=== PATIENT | male | born 1965 ===

== ENCOUNTER 2016-10-24 14:32 | Emergency (ER) | payer OTHER ==
[2016-10-24 14:50] VITALS: BP 128/94; PULSE 89; RESP 16; TEMP 98; O2SAT 100
--- NOTE | 2016-10-24 15:23 | ED PDOC ---
HPI: CCC, URI, Sore Throat Time Seen by Provider: 10/24/16 15:03 Chief Complaint (Nursing): ENT Problem Chief Complaint (Provider): Red itchy eyes, scratchy throat for 1 week History Per: Patient History/Exam Limitations: no limitations Have you had recent travel within the past 21 days to any of the following countries: [place], [place], [place] or [place]?: No Onset/Duration Of Symptoms: Days (1.5 weeks ) Current Symptoms Are (Timing): Still Present Location Of Pain: None Sick Contacts (Context): None Associated Symptoms: Sore Throat, Nasal Congestion (Watery ). denies: Fever, Chills, Cough, Sputum, Sinus Drainage, Myalgias Ear Symptoms: Bilateral: None Severity: Mild Additional Complaint(s): Pt reports history of seasonal allergies but states he has never had throat pain with it. Pt is not taking any medications for the symptoms. Past Medical History Reviewed: Historical Data, Nursing Documentation, Vital Signs Vital Signs: Last Vital Signs Temp 98.0 F 10/24/16 14:50 Pulse 89 10/24/16 14:50 Resp 16 10/24/16 14:50 BP 128/94 H 10/24/16 14:50 Pulse Ox 100 10/24/16 15:24 - Medical History PMH: No Chronic Diseases - Surgical History Surgical History: No Surg Hx - Family History Family History: States: Unknown Family Hx - Living Arrangements Living Arrangements: With Family - Social History Current smoker - smoking cessation education provided: No Alcohol: None Drugs: Denies - Home Medications Home Medications: Ambulatory Orders Medication Instructions Recorded Amoxicillin 875 mg PO BID #20 tab 10/24/16 Fexofenadine/Pseudoephedrine 1 each PO BID PRN #12 tab.er.12h 10/24/16 [Debra-D 12 Hour Tablet] - Allergies Allergies/Adverse Reactions: Allergies Allergy/AdvReac Type Severity Reaction Status Date / Time No Known Allergies Allergy Verified 10/24/16 14:49 Review of Systems ROS Statement: Except As Marked, All Systems Reviewed And Found Negative Eyes: Positive for: Redness, Other (Watery) ENT: Positive for: Throat Pain Physical Exam - Reviewed Nursing Documentation Reviewed: Yes Vital Signs Reviewed: Yes - Physical Exam Appears: Positive for: Well, Non-toxic, No Acute Distress Head Exam: Positive for: ATRAUMATIC, NORMAL INSPECTION, NORMOCEPHALIC Skin: Positive for: Normal Color, Warm, DRY Eye Exam: Positive for: Conjunctival injection. Negative for: Normal appearance ENT: Positive for: Pharyngeal Erythema. Negative for: Normal ENT Inspection Neck: Positive for: Normal, Painless ROM Cardiovascular/Chest: Positive for: Regular Rate, Rhythm Respiratory: Positive for: Normal Breath Sounds. Negative for: Accessory Muscle Use, Wheezing, Respiratory Distress Back: Positive for: Normal Inspection Extremity: Positive for: Normal ROM Neurologic/Psych: Positive for: Alert, Oriented - ECG O2 Sat by Pulse Oximetry: 100 Medical Decision Making Medical Decision Making: Strep (+) Disposition - Clinical Impression Clinical Impression: Seasonal allergies, Strep throat - Patient ED Disposition Is Patient to be Admitted: No Counseled Patient/Family Regarding: Diagnosis, Need For Followup - Disposition Referrals: [facility] [Outside] Disposition: Routine/Home Disposition Time: 15:49 Condition: GOOD Prescriptions: Amoxicillin 875 mg PO BID #20 tab Fexofenadine/Pseudoephedrine [Debra-D 12 Hour Tablet] 1 each PO BID PRN #12 tab.er.12h PRN Reason: Cough And Congestion Instructions: Strep Throat (ED) Print Language: MACEDONIAN
== END 2016-10-24 16:08 | disposition home or self-care (01) ==
LOC: H.ER 14:32
DX: J30.2 Other seasonal allergic rhinitis (principal); J02.0 Streptococcal pharyngitis

== ENCOUNTER 2017-01-03 10:17 | Emergency (ER) | payer OTHER ==
[2017-01-03 10:40] VITALS: BMI 32.3
[2017-01-03 10:45] VITALS: RESP 18; TEMP 98.2; O2SAT 98
[2017-01-03 11:09] LABS: HEMOGLOBIN 14.4 g/dL (12.0-18.0); MEAN CELL VOLUME 86.3 fl (80.0-94.0); MEAN CORPUSCULAR HEMOGLOBIN 29.5 pg (27.0-31.0); MEAN CORPUSCULAR HGB CONC 34.1 g/dL (33.0-37.0); RBC 4.88 Mil/uL (4.40-5.90); RED CELL DISTRIBUTION WIDTH 14.2 % (11.5-14.5)
[2017-01-03] MEDS ORDERED: Iohexol 240 (50 ml) PO ONE (11:14)
[2017-01-03 11:32] LABS: ALBUMIN 4.4 g/dL (3.5-5.0)
[2017-01-03 11:35] LABS: ALB/GLOB RATIO 1.1 (1.0-2.1); ALT/SGPT 113 U/L (21-72); AST/SGOT 50 U/L (17-59); BLOOD UREA NITROGEN 14 mg/dl (9-20); GFR AFRICAN-AMERICAN > 60; GFR NON-AFRICAN AMERICAN > 60
[2017-01-03 11:36] LABS: CALCIUM 9.2 mg/dL (8.4-10.2)
[2017-01-03] MEDS ORDERED: Iohexol 240 (50 ml) ONE (12:21)
[2017-01-03] MEDS ORDERED: Iohexol 300 100 ML IJ ONE (14:45)
[2017-01-03] MEDS ORDERED: Sodium Chloride 0.9% 50 ML IV ONE (14:45)
--- NOTE | 2017-01-03 15:35 | CT ---
PROCEDURE: CT Abdomen and Pelvis with contrast HISTORY: left sided abdominal pain COMPARISON: None. TECHNIQUE: Contrast dose: 100 mL Omnipaque 300. Axial and reformatted coronal and sagittal CT images of the abdomen and pelvis were obtained after IV and oral contrast administration. Radiation dose: Total exam DLP = 1158.69 mGy-cm. This CT exam was performed using one or more of the following dose reduction techniques: Automated exposure control, adjustment of the mA and/or kV according to patient size, and/or use of iterative reconstruction technique. FINDINGS: LOWER THORAX: Unremarkable. LIVER: The liver is mildly enlarged demonstrates diffuse moderate hypodensity suggestive but nonspecific for hepatic steatosis P GALLBLADDER AND BILE DUCTS: Unremarkable. PANCREAS: Unremarkable. No gross lesion or ductal dilatation. SPLEEN: Unremarkable. ADRENALS: Unremarkable. No mass. KIDNEYS AND URETERS: Unremarkable. No hydronephrosis. No solid mass. VASCULATURE: Unremarkable. No aortic aneurysm. BOWEL: Mildly dilated small bowel loops at the left mid and upper abdomen demonstrate mild wall thickening. Findings suspicious for enteritis. No evidence of bowel obstruction APPENDIX: Normal appendix. PERITONEUM: Unremarkable. No free fluid. No free air. LYMPH NODES: Unremarkable. No enlarged lymph nodes. BLADDER: Unremarkable. REPRODUCTIVE: Unremarkable. BONES: No acute fracture. OTHER FINDINGS: None. IMPRESSION: Mildly dilated small bowel loops at the left mid and upper abdomen demonstrate mild wall thickening. Findings suspicious for enteritis. No evidence of high-grade bowel obstruction. Mild hepatomegaly and [id number] hepatic steatosis.
--- NOTE | 2017-01-03 15:51 | ED PDOC ---
HPI: Abdomen Time Seen by Provider: 01/03/17 10:35 Chief Complaint (Nursing): Abdominal Pain Chief Complaint (Provider): LEft sided abdominal pain on/off for 2 months History Per: Patient History/Exam Limitations: no limitations Onset/Duration Of Symptoms: Days Outside of [place] travel?: No Current Symptoms Are (Timing): Still Present Location Of Pain/Discomfort: LUQ, LLQ Quality Of Discomfort: Sharp, Cramping Associated Symptoms: Diarrhea. denies: Fever, Chills, Nausea, Vomiting, Loss Of Appetite, Back Pain, Chest Pain Exacerbating Factors: None Additional Complaint(s): PT has not yet been seen for symptoms. Past Medical History Reviewed: Historical Data, Nursing Documentation, Vital Signs Vital Signs: Last Vital Signs Temp 98.2 F 01/03/17 10:35 Pulse 81 01/03/17 10:35 Resp 18 01/03/17 10:35 BP 142/82 01/03/17 10:35 Pulse Ox 98 01/03/17 10:35 - Medical History PMH: No Chronic Diseases - Surgical History Surgical History: No Surg Hx - Family History Family History: States: Unknown Family Hx - Living Arrangements Living Arrangements: With Family - Social History Current smoker - smoking cessation education provided: No Alcohol: None Drugs: Denies - Home Medications Home Medications: Ambulatory Orders Medication Instructions Recorded Amoxicillin 875 mg PO BID #20 tab 10/24/16 Fexofenadine/Pseudoephedrine 1 each PO BID PRN #12 tab.er.12h 10/24/16 [Debra-D 12 Hour Tablet] Ciprofloxacin [Cipro] 500 mg PO BID #20 tab 01/03/17 metroNIDAZOLE [Flagyl] 500 mg PO TID #30 tab 01/03/17 - Allergies Allergies/Adverse Reactions: Allergies Allergy/AdvReac Type Severity Reaction Status Date / Time No Known Allergies Allergy Verified 10/24/16 14:49 Review of Systems ROS Statement: Except As Marked, All Systems Reviewed And Found Negative Constitutional: Negative for: Fever, Chills Gastrointestinal: Positive for: Abdominal Pain, Diarrhea. Negative for: Nausea , Vomiting Physical Exam - Reviewed Nursing Documentation Reviewed: Yes Vital Signs Reviewed: Yes - Physical Exam Appears: Positive for: Well, Non-toxic, No Acute Distress Head Exam: Positive for: ATRAUMATIC, NORMAL INSPECTION, NORMOCEPHALIC Skin: Positive for: Normal Color, Warm, DRY Eye Exam: Positive for: Normal appearance ENT: Positive for: Normal ENT Inspection Neck: Positive for: Normal, Painless ROM Cardiovascular/Chest: Positive for: Regular Rate, Rhythm Respiratory: Positive for: CNT, Normal Breath Sounds Gastrointestinal/Abdominal: Positive for: Bowel Sounds, Soft, Tenderness (LLQ, LUQ ). Negative for: Normal Exam Back: Positive for: Normal Inspection Extremity: Positive for: Normal ROM Neurologic/Psych: Positive for: Alert, Oriented - Laboratory Results Result Diagrams: 01/03/17 11:06 01/03/17 11:06 - ECG O2 Sat by Pulse Oximetry: 98 Disposition - Clinical Impression Clinical Impression: Enteritis - Patient ED Disposition Is Patient to be Admitted: No Counseled Patient/Family Regarding: Diagnosis, Need For Followup, Rx Given - Disposition Referrals: Oleksandr Pierre MD, PhD [Staff Provider] - Disposition: Routine/Home Disposition Time: 15:52 Condition: GOOD Prescriptions: Ciprofloxacin [Cipro] 500 mg PO BID #20 tab metroNIDAZOLE [Flagyl] 500 mg PO TID #30 tab Instructions: Enteritis (ED) Print Language: LUXEMBOURGISH
[2017-01-03 16:25] VITALS: BP 130/74; PULSE 88
== END 2017-01-03 16:24 | disposition home or self-care (01) ==
LOC: H.ER 10:17
DX: K52.9 Noninfective gastroenteritis and colitis, unspecified (principal)

== ENCOUNTER 2018-05-30 10:06 | Observation (INO) | payer SELFPAY ==
[2018-05-30 10:07] VITALS: BMI 32.3
--- NOTE | 2018-05-30 11:09 | ED PDOC ---
HPI: Abdomen <Oleksandr Muller III - Last Filed: 05/30/18 13:44> Additional Complaint(s): 53 yo male patient w/o PMH presents to the ED c/o LUQ and LLQ pain, patient reports that pain started 3 days ago, no related with food or any other event. Associated bloody diarrhea x2 and dyspesia. Patient also states had similar event ~ 1 year ago. Otherwise he denies fever, chills, nausea, vomiting, constipation, no urinary sx, recent travels or sick contacts. <Bruce Navas - Last Filed: 05/30/18 13:50> Time Seen by Provider: 05/30/18 10:45 Chief Complaint (Nursing): Abdominal Pain Supervising Attending Note - Attestation: I have personally seen and examined this patient.: Yes I have fully participated in the care of the patient.: Yes I have reviewed all pertinent clinical information: Yes - Notes: Notes:: attending note pt seen/examined and agree with resident findings CT report demonstrated possible acute appendicitis. Clinically pain is L sided with minimal R sided tenderness. Admit Obs for surgical eval. D/w Dr Sloan and vice president of contracts 140pm Hold Abx for now <Oleksandr Muller III - Last Filed: 05/30/18 13:44> Past Medical History Vital Signs: Last Vital Signs Temp 98.2 F 05/30/18 10:31 Pulse 84 05/30/18 10:31 Resp 20 05/30/18 10:31 BP 142/86 05/30/18 10:31 Pulse Ox 96 05/30/18 11:19 <Oleksandr Muller III - Last Filed: 05/30/18 13:44> Vital Signs: Last Vital Signs Temp 98.2 F 05/30/18 10:31 Pulse 84 05/30/18 10:31 Resp 20 05/30/18 10:31 BP 142/86 05/30/18 10:31 Pulse Ox 96 05/30/18 10:31 - Medical History PMH: No Chronic Diseases Denies: Chronic Kidney Disease - Surgical History Other surgeries: b/l Foot surgery - Family History Family History: States: Unknown Family Hx - Social History Current smoker - smoking cessation education provided: No Ex-Smoker (has not smoked in the last 12 months): Yes Alcohol: None Drugs: Denies - Immunization History Hx Tetanus Toxoid Vaccination: Yes Hx Influenza Vaccination: No Hx Pneumococcal Vaccination: No <Bruce Navas - Last Filed: 05/30/18 13:50> - Home Medications Home Medications: Ambulatory Orders Medication Instructions Recorded No Known Home Med 05/30/18 - Allergies Allergies/Adverse Reactions: Allergies Allergy/AdvReac Type Severity Reaction Status Date / Time No Known Allergies Allergy Verified 02/03/18 02:45 Physical Exam - Physical Exam Appears: Positive for: No Acute Distress Head Exam: Positive for: NORMAL INSPECTION Skin: Positive for: Normal Color, Warm, Dry Eye Exam: Positive for: EOMI Cardiovascular/Chest: Positive for: Regular Rate, Rhythm. Negative for: Tachycardia Respiratory: Positive for: Normal Breath Sounds. Negative for: Rales, Wheezing Gastrointestinal/Abdominal: Positive for: Bowel Sounds, Tenderness (LUQ and LLU), Distended (mild) Neurologic/Psych: Positive for: Alert, crew supervisor II-XII, Oriented <Bruce Navas - Last Filed: 05/30/18 13:50> - Laboratory Results Result Diagrams: 05/30/18 11:20 05/30/18 11:20 <Oleksandr Muller III - Last Filed: 05/30/18 13:44> - Laboratory Results Result Diagrams: 05/30/18 11:20 05/30/18 11:20 - ECG O2 Sat by Pulse Oximetry: 96 - Progress ED Course And Treament: 53 yo male patient with LUQ and LLQ pain, bloody diarrhea Plan: - cbc - cmp - lipase - abd/pelvis CT iv contrast - IV fluids - Toradol 15 mg IV once - bentyl PO once 1300 Reeval: Less but still having mild pain General surgery consulted. CT FINDINGS: LOWER THORAX: Small Bochdalek's hernia on the right side with only a small amount of fat herniated. No infiltrate or effusion. LIVER: Unremarkable. No gross lesion or ductal dilatation. GALLBLADDER AND BILE DUCTS: Unremarkable. PANCREAS: Unremarkable. No gross lesion or ductal dilatation. SPLEEN: Unremarkable. ADRENALS: Unremarkable. No mass. KIDNEYS AND URETERS: Unremarkable. No hydronephrosis. No solid mass. VASCULATURE: Unremarkable. No aortic aneurysm. No aortic atherosclerotic calcification or mural plaque present. BOWEL: Mild sigmoid diverticulosis without evidence of diverticulitis. No bowel obst ruction. APPENDIX: There is inflammatory change seen about the mid aspect of the appendix. The mid aspect of the appendix measures up to 8 mm in diameter. It does not appear definitely distended with fluid. The proximal appendix and distal appendix are normal in appearance. There stranding of the periappendiceal fat. There is no periappendiceal abscess or free air. Findings are concerning for acute appendicitis. PERITONEUM: Unremarkable. No free fluid. No free air. LYMPH NODES: Unremarkable. No enlarged lymph nodes. BLADDER: Unremarkable. REPRODUCTIVE: Prostate BONES: No acute fracture. OTHER FINDINGS: None. IMPRESSION: Findings consistent with acute appendicitis. This is atypical in that it involves only the mid aspect of the appendix. Nevertheless, recommend surgical consultation. No other acute abnormality. Minor findings as above. <Burce Navas - Last Filed: 05/30/18 13:50> Disposition <Oleksandr Muller III - Last Filed: 05/30/18 13:44> - Disposition Disposition Time: 13:50 <Bruce Navas - Last Filed: 05/30/18 13:50> - Clinical Impression Clinical Impression: Acute appendicitis - Disposition Condition: STABLE Forms: [employer]plify (Swedish)
[2018-05-30] MEDS ORDERED: Sodium Chloride 0.9% 1,000 ML IV ONE (11:15)
[2018-05-30 11:52] LABS: ALB/GLOB RATIO 1.5 (1.0-2.1); ALBUMIN 4.5 g/dL (3.5-5.0); ALT/SGPT 56 U/L (21-72); AST/SGOT 39 U/L (17-59); BLOOD UREA NITROGEN 13 mg/dl (9-20); CALCIUM 9.2 mg/dL (8.4-10.2); GFR NON-AFRICAN AMERICAN > 60; LIPASE 51 U/L (23-300)
[2018-05-30 12:19] LABS: BASO % 0.3 % (0.0-2.0); EOS # 0.4 K/uL (0.0-0.7); EOS % 3.7 % (0.0-4.0); HEMOGLOBIN 13.1 g/dL (12.0-18.0); LYMPH # 2.8 K/uL (1.0-4.3); LYMPH % 26.4 % (20.0-40.0); MEAN CELL VOLUME 88.5 fl (80.0-94.0); MEAN CORPUSCULAR HEMOGLOBIN 29.4 pg (27.0-31.0); MEAN CORPUSCULAR HGB CONC 33.2 g/dL (33.0-37.0); MEAN PLATELET VOLUME 8.2 fl (7.2-11.7); MONO # 0.7 K/uL (0.0-0.8); NEUT # 6.6 K/uL (1.8-7.0); NEUT % 62.6 % (50.0-75.0); NRBC % 0.1 % (0.0-0.0); RBC 4.44 Mil/uL (4.40-5.90); RED CELL DISTRIBUTION WIDTH 15.2 % (11.5-14.5); WHITE BLOOD COUNT 10.6 K/uL (4.8-10.8)
[2018-05-30] MEDS ORDERED: Sodium Chloride 0.9% 50 ML IV ONE (12:21)
[2018-05-30] MEDS ORDERED: Iohexol 300 100 ML IJ ONE (12:21)
--- NOTE | 2018-05-30 13:23 | CT ---
Date of service: 05/30/2018 PROCEDURE: CT Abdomen and Pelvis with contrast HISTORY: diffuse abdominal pain COMPARISON: 01/03/2017 TECHNIQUE: Contrast dose: 95 cc Omnipaque 300 Radiation dose: Total exam DLP = 971.56 mGy-cm. This CT exam was performed using one or more of the following dose reduction techniques: Automated exposure control, adjustment of the mA and/or kV according to patient size, and/or use of iterative reconstruction technique. FINDINGS: LOWER THORAX: Small Bochdalek's hernia on the right side with only a small amount of fat herniated. No infiltrate or effusion. LIVER: Unremarkable. No gross lesion or ductal dilatation. GALLBLADDER AND BILE DUCTS: Unremarkable. PANCREAS: Unremarkable. No gross lesion or ductal dilatation. SPLEEN: Unremarkable. ADRENALS: Unremarkable. No mass. KIDNEYS AND URETERS: Unremarkable. No hydronephrosis. No solid mass. VASCULATURE: Unremarkable. No aortic aneurysm. No aortic atherosclerotic calcification or mural plaque present. BOWEL: Mild sigmoid diverticulosis without evidence of diverticulitis. No bowel obstruction. APPENDIX: There is inflammatory change seen about the mid aspect of the appendix. The mid aspect of the appendix measures up to 8 mm in diameter. It does not appear definitely distended with fluid. The proximal appendix and distal appendix are normal in appearance. There stranding of the periappendiceal fat. There is no periappendiceal abscess or free air. Findings are concerning for acute appendicitis. PERITONEUM: Unremarkable. No free fluid. No free air. LYMPH NODES: Unremarkable. No enlarged lymph nodes. BLADDER: Unremarkable. REPRODUCTIVE: Prostate BONES: No acute fracture. OTHER FINDINGS: None. IMPRESSION: Findings consistent with acute appendicitis. This is atypical in that it involves only the mid aspect of the appendix. Nevertheless, recommend surgical consultation. No other acute abnormality. Minor findings as above.
--- NOTE | 2018-05-30 15:09 | CP.PCM.CON ---
<Milton Ragsdale - Last Filed: 05/30/18 15:12> History of Present Illness - History of Present Illness History of Present Illness: SURGERY CONSULT NOTE FOR DR. TIPTON Reason for consult: Appendicitis as seen on CT 53M presents with abdominal pain that started earlier today. He states that pain comes and goes. The pain is located in the left flank. He denies any radiation of pain. He denies any pain on the right side of abdomen. He states the pain is note associated with nausea or vomiting. He denies any fevers or chills. Patient denies anorexia. He does admit to having bleeding with bowel movements in the past. He was supposed to have a colonoscopy 2 months ago but was in the hospital for foot fracture and was not able to go. Patient denies any urinary symptoms. PMH: denies PSH: denies Social: Denies tobacco, alcohol, illicit drug abuse Allergies: NKDA Past Patient History - Infectious Disease Hx of Infectious Diseases: None - Past Medical History & Family History Past Medical History?: Yes - Past Social History Alcohol: None Drugs: Denies - CARDIAC Hx Cardiac Disorders: No - PULMONARY Hx Respiratory Disorders: No - NEUROLOGICAL Hx Neurological Disorder: No - HEENT Hx HEENT Problems: No - RENAL Hx Chronic Kidney Disease: No - ENDOCRINE/METABOLIC Hx Endocrine Disorders: No - HEMATOLOGICAL/ONCOLOGICAL Hx Blood Disorders: No - INTEGUMENTARY Hx Dermatological Problems: Yes Other/Comment: "PT. 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 - MUSCULOSKELETAL/RHEUMATOLOGICAL Hx Musculoskeletal Disorders: Yes Hx Falls: No Other/Comment: HX: "RIGHT ANKLE REPAIR"- PER MD'S NOTES. OSTEOMYELITIS 1ST MTP JOINT. - GASTROINTESTINAL Hx Gastrointestinal Disorders: No - GENITOURINARY/GYNECOLOGICAL Hx Genitourinary Disorders: No - PSYCHIATRIC Hx Psychophysiologic Disorder: No Hx Substance Use: No - SURGICAL HISTORY Hx Surgeries: Yes Other/Comment: RIGHT ANKLE REPAIR - ANESTHESIA Hx Anesthesia: Yes Hx Anesthesia Reactions: No Hx Malignant Hyperthermia: No Meds Allergies/Adverse Reactions: Allergies Allergy/AdvReac Type Severity Reaction Status Date / Time No Known Allergies Allergy Verified 02/03/18 02:45 - Medications Medications: Current Medications Sodium Chloride (Sodium Chloride 0.9%) 1,000 mls @ 100 mls/hr IV .Q10H ONE Stop: 05/30/18 21:14 Last Admin: 05/30/18 11:28 Dose: 100 mls/hr Physical Exam - Constitutional Appears: Non-toxic, No Acute Distress - Head Exam Head Exam: ATRAUMATIC - ENT Exam ENT Exam: Mucous Membranes Moist - Respiratory Exam Respiratory Exam: Clear to Auscultation Bilateral, NORMAL BREATHING PATTERN - GI/Abdominal Exam GI & Abdominal Exam: Soft, Tenderness (very mild pain in the left flank). absent: Distended, Firm, Guarding, Rebound, Rigid - Extremities Exam Extremities exam: Negative for: pedal edema, tenderness - Neurological Exam Neurological exam: Alert, Oriented x3 - Skin Skin Exam: Dry, Intact, Normal Color, Warm Results - Vital Signs Recent Vital Signs: Last Vital Signs Temp 98.2 F 05/30/18 10:31 Pulse 84 05/30/18 10:31 Resp 20 05/30/18 10:31 BP 142/86 05/30/18 10:31 Pulse Ox 96 05/30/18 13:50 - Labs Result Diagrams: 05/30/18 11:20 05/30/18 11:20 Labs: Laboratory Results - last 24 hr 05/30/18 05/30/18 11:20 11:20 WBC 10.6 RBC 4.44 Hgb 13.1 Hct 39.3 MCV 88.5 D MCH 29.4 MCHC 33.2 RDW 15.2 H Plt Count 284 MPV 8.2 Neut % (Auto) 62.6 Lymph % (Auto) 26.4 [place] % (Auto) 7.0 Eos % (Auto) 3.7 Baso % (Auto) 0.3 Neut # (Auto) 6.6 Lymph # (Auto) 2.8 [place] # (Auto) 0.7 Eos # (Auto) 0.4 Baso # (Auto) 0.0 Sodium 142 Potassium 3.8 Chloride 109 H Carbon Dioxide 25 Anion Gap 12 BUN 13 Creatinine 0.9 Est GFR ( Amer) > 60 Est GFR (Non-Af Amer) > 60 Random Glucose 97 Calcium 9.2 Total Bilirubin 0.4 AST 39 ALT 56 Alkaline Phosphatase 101 Total Protein 7.6 Albumin 4.5 Globulin 3.1 Albumin/Globulin Ratio 1.5 Lipase 51 Assessment & Plan - Assessment and Plan (Free Text) Assessment: 53M with left sided abdominal pain and CT finding of mid appendix inflammation but normal proximal and distal appendix Plan: Regular diet NPO after midnight IVF Pain control Patient admitted for observation Recommend GI consultation for colonoscopy Serial abdominal exam Discussed with Dr. Stuart Ragsdale, PGY3 <Evelyn Tipton - Last Filed: 05/31/18 13:10> Meds - Medications Medications: Current Medications Acetaminophen (Tylenol 325mg Tab) 650 mg PO Q4 PRN PRN Reason: Pain, severe (8-10) Lactated Ringer's (Lactated Ringer's) 1,000 mls @ 125 mls/hr IV .Q8H HO Last Admin: 05/31/18 09:16 Dose: Not Given Azithromycin 500 mg/ Sodium (Chloride) 250 mls @ 250 mls/hr IVPB DAILY [facility]; Protocol Last Admin: 05/31/18 09:28 Dose: 250 mls/hr Piperacillin Sod/Tazobactam (Sod 3.375 gm/ Sodium Chloride) 100 mls @ 100 mls/hr IVPB Q6H HO; Protocol Last Admin: 05/31/18 09:28 Dose: 100 mls/hr Morphine Sulfate (Morphine) 4 mg IVP Q6 PRN PRN Reason: Pain, moderate (4-7) Last Admin: 05/31/18 00:32 Dose: 4 mg Ondansetron HCl (Zofran Inj) 4 mg IVP Q6 PRN PRN Reason: Nausea/Vomiting Last Admin: 05/31/18 00:16 Dose: 4 mg Results - Vital Signs Recent Vital Signs: Last Vital Signs Temp 97.9 F 05/31/18 08:12 Pulse 71 05/31/18 08:12 Resp 19 05/31/18 08:12 BP 142/95 H 05/31/18 08:12 Pulse Ox 96 05/31/18 08:12 - Labs Result Diagrams: 05/31/18 06:00 05/31/18 06:00 Labs: Laboratory Results - last 24 hr 05/31/18 05/31/18 05/31/18 01:00 06:00 06:00 WBC 10.6 RBC 4.30 L Hgb 12.4 Hct 36.9 MCV 85.9 D MCH 28.8 MCHC 33.5 RDW 15.2 H Plt Count 254 MPV 8.0 Neut % (Auto) 67.9 Lymph % (Auto) 20.7 [place] % (Auto) 7.1 Eos % (Auto) 3.9 Baso % (Auto) 0.4 Neut # (Auto) 7.2 H Lymph # (Auto) 2.2 [place] # (Auto) 0.8 Eos # (Auto) 0.4 Baso # (Auto) 0.0 PT INR APTT Sodium 141 Potassium 4.1 Chloride 108 H Carbon Dioxide 27 Anion Gap 10 BUN 12 Creatinine 0.9 Est GFR ( Amer) > 60 Est GFR (Non-Af Amer) > 60 Random Glucose 91 Calcium 9.0 Urine Color Straw Urine Clarity Clear Urine pH 6.0 Ur Specific [place] 1.017 Urine Protein Negative Urine Glucose (UA) Neg Urine Ketones Negative Urine Blood Negative Urine Nitrate Negative Urine Bilirubin Negative Urine Urobilinogen 0.2-1.0 Ur Leukocyte Esterase Neg Urine RBC (Auto) 1 Urine Microscopic WBC < 1 Urine Bacteria Rare 05/31/18 06:00 WBC RBC Hgb Hct MCV MCH MCHC RDW Plt Count MPV Neut % (Auto) Lymph % (Auto) [place] % (Auto) Eos % (Auto) Baso % (Auto) Neut # (Auto) Lymph # (Auto) [place] # (Auto) Eos # (Auto) Baso # (Auto) PT 12.2 INR 1.1 APTT 34.1 Sodium Potassium Chloride Carbon Dioxide Anion Gap BUN Creatinine Est GFR ( Amer) Est GFR (Non-Af Amer) Random Glucose Calcium Urine Color Urine Clarity Urine pH Ur Specific [place] Urine Protein Urine Glucose (UA) Urine Ketones Urine Blood Urine Nitrate Urine Bilirubin Urine Urobilinogen Ur Leukocyte Esterase Urine RBC (Auto) Urine Microscopic WBC Urine Bacteria Assessment & Plan - Assessment and Plan (Free Text) Plan: Seen and examined independent of resident staff and CT imaging and report personally reviewed. Agree with above. mild acute appendicitis. Diverticular disease left colon may explain left sided abdominal pain. OR for laparoscopic appendectomy in am.
[2018-05-30] MEDS ORDERED: Morphine 4 MG/ML VIAL IVP PRN (15:20)
[2018-05-30] MEDS ORDERED: Potassium Ch 20mEq in D5-1/2NS 1,000 ML IV SCH (15:45)
--- NOTE | 2018-05-30 16:16 | CP.PCM.HP ---
<Todd Farmer - Last Filed: 05/30/18 16:33> History of Present Illness - History of Present Illness History of Present Illness: 53 yo M with pmhx of gastroenteritis and osteomyelitis of L 1st MTP presents to the ED with L sided abdominal pain. He reports generalized L sided pain for approximately 7 years. However, for the past day, he reports increase in pain. Pain is sharp, intermittent, aggravated with movement, mildly alleviated with tylenol. He reports nausea and vomiting x1 this morning. Denies recent abdominal trauma. He reports bloody diarrhea, colored blue. Not bright red or maroon. Normal PO intake. Denies fever, chills, recent travel or sick contacts PMD: [facility] Famhx: none Surg: I&d of L 1st MTP. Soc: Denies alcohol, smoking, illicit drugs rx: tylenol NKDA Present on Admission - Present on Admission Any Indicators Present on Admission: No History of DVT/PE: No History of Uncontrolled Diabetes: No Urinary Catheter: No Review of Systems - Constitutional Constitutional: absent: Chills, Fever - Cardiovascular Cardiovascular: absent: Chest Pain - Respiratory Respiratory: absent: Dyspnea - Gastrointestinal Gastrointestinal: Abdominal Pain, Diarrhea (Reports blue feces), Nausea, Vomiting - Genitourinary Genitourinary: absent: Difficulty Urinating Past Patient History - Infectious Disease Hx of Infectious Diseases: None - Past Medical History & Family History Past Medical History?: Yes - Past Social History Alcohol: None Drugs: Denies - CARDIAC Hx Cardiac Disorders: No - PULMONARY Hx Respiratory Disorders: No - NEUROLOGICAL Hx Neurological Disorder: No - HEENT Hx HEENT Problems: No - RENAL Hx Chronic Kidney Disease: No - ENDOCRINE/METABOLIC Hx Endocrine Disorders: No - HEMATOLOGICAL/ONCOLOGICAL Hx Blood Disorders: No - INTEGUMENTARY Hx Dermatological Problems: Yes - MUSCULOSKELETAL/RHEUMATOLOGICAL Hx Musculoskeletal Disorders: Yes - GASTROINTESTINAL Hx Gastrointestinal Disorders: No - GENITOURINARY/GYNECOLOGICAL Hx Genitourinary Disorders: No - PSYCHIATRIC Hx Psychophysiologic Disorder: No - SURGICAL HISTORY Hx Surgeries: Yes Other/Comment: RIGHT ANKLE REPAIR - ANESTHESIA Hx Anesthesia: Yes Hx Anesthesia Reactions: No Hx Malignant Hyperthermia: No Meds Allergies/Adverse Reactions: Allergies Allergy/AdvReac Type Severity Reaction Status Date / Time No Known Allergies Allergy Verified 02/03/18 02:45 Physical Exam - Constitutional Appears: Well, Non-toxic - Eye Exam Eye Exam: EOMI - ENT Exam ENT Exam: Mucous Membranes Moist - Respiratory Exam Respiratory Exam: Clear to Auscultation Bilateral, NORMAL BREATHING PATTERN. absent: Wheezes - Cardiovascular Exam Cardiovascular Exam: REGULAR RHYTHM, +S1, +S2 - GI/Abdominal Exam GI & Abdominal Exam: Normal Bowel Sounds, Tenderness (deep palpation and percussion at L upper and lower quadrant). absent: Guarding - Back Exam Back exam: absent: CVA tenderness (L), CVA tenderness (R) - Neurological Exam Neurological exam: Alert, CN II-XII Intact, Oriented x3 - Psychiatric Exam Psychiatric exam: Normal Affect, Normal Mood Results - Vital Signs Recent Vital Signs: Last Vital Signs Temp 98.2 F 05/30/18 15:52 Pulse 84 05/30/18 15:52 Resp 20 05/30/18 15:52 BP 142/86 05/30/18 15:52 Pulse Ox 99 05/30/18 15:52 - Labs Result Diagrams: 05/30/18 11:20 05/30/18 11:20 Labs: Laboratory Results - last 24 hr 05/30/18 05/30/18 11:20 11:20 WBC 10.6 RBC 4.44 Hgb 13.1 Hct 39.3 MCV 88.5 D MCH 29.4 MCHC 33.2 RDW 15.2 H Plt Count 284 MPV 8.2 Neut % (Auto) 62.6 Lymph % (Auto) 26.4 [place] % (Auto) 7.0 Eos % (Auto) 3.7 Baso % (Auto) 0.3 Neut # (Auto) 6.6 Lymph # (Auto) 2.8 [place] # (Auto) 0.7 Eos # (Auto) 0.4 Baso # (Auto) 0.0 Sodium 142 Potassium 3.8 Chloride 109 H Carbon Dioxide 25 Anion Gap 12 BUN 13 Creatinine 0.9 Est GFR ( Amer) > 60 Est GFR (Non-Af Amer) > 60 Random Glucose 97 Calcium 9.2 Total Bilirubin 0.4 AST 39 ALT 56 Alkaline Phosphatase 101 Total Protein 7.6 Albumin 4.5 Globulin 3.1 Albumin/Globulin Ratio 1.5 Lipase 51 Assessment & Plan - Assessment and Plan (Free Text) Assessment: 53 yo M with pmhx of gastroenteritis and osteomyelitis of L 1st MTP admitted for acute appendicitis. Plan: Acute appendicitis -Admit to med surg -CT abdomen and pelvis with IV contrast: acute appendicitis. atypical -Surgery consulted: NPO at midnight, IVF, consider GI consult for colonoscopy -Zosyn -1 mx -monitor wbc, fever -f/u labs Diarrhea -Unclear of blood per rectum -hx of blood described as blue in color -No current bloody stools -History of enteritis -Consult GI: Dr. Pierre for possible colonoscopy Prophylaxis -SCDs Case dw Dr. Luther Farmer MD PGY2 <Celeste Sloan - Last Filed: 05/31/18 18:35> Results - Vital Signs Recent Vital Signs: Last Vital Signs Temp 97.6 F 05/31/18 16:19 Pulse 67 05/31/18 16:19 Resp 18 05/31/18 16:19 BP 109/70 05/31/18 16:19 Pulse Ox 94 L 05/31/18 16:19 - Labs Result Diagrams: 05/31/18 06:00 05/31/18 06:00 Labs: Laboratory Results - last 24 hr 05/31/18 05/31/18 05/31/18 01:00 06:00 06:00 WBC 10.6 RBC 4.30 L Hgb 12.4 Hct 36.9 MCV 85.9 D MCH 28.8 MCHC 33.5 RDW 15.2 H Plt Count 254 MPV 8.0 Neut % (Auto) 67.9 Lymph % (Auto) 20.7 [place] % (Auto) 7.1 Eos % (Auto) 3.9 Baso % (Auto) 0.4 Neut # (Auto) 7.2 H Lymph # (Auto) 2.2 [place] # (Auto) 0.8 Eos # (Auto) 0.4 Baso # (Auto) 0.0 PT INR APTT Sodium 141 Potassium 4.1 Chloride 108 H Carbon Dioxide 27 Anion Gap 10 BUN 12 Creatinine 0.9 Est GFR ( Amer) > 60 Est GFR (Non-Af Amer) > 60 Random Glucose 91 Calcium 9.0 Urine Color Straw Urine Clarity Clear Urine pH 6.0 Ur Specific [place] 1.017 Urine Protein Negative Urine Glucose (UA) Neg Urine Ketones Negative Urine Blood Negative Urine Nitrate Negative Urine Bilirubin Negative Urine Urobilinogen 0.2-1.0 Ur Leukocyte Esterase Neg Urine RBC (Auto) 1 Urine Microscopic WBC < 1 Urine Bacteria Rare 05/31/18 06:00 WBC RBC Hgb Hct MCV MCH MCHC RDW Plt Count MPV Neut % (Auto) Lymph % (Auto) [place] % (Auto) Eos % (Auto) Baso % (Auto) Neut # (Auto) Lymph # (Auto) [place] # (Auto) Eos # (Auto) Baso # (Auto) PT 12.2 INR 1.1 APTT 34.1 Sodium Potassium Chloride Carbon Dioxide Anion Gap BUN Creatinine Est GFR ( Amer) Est GFR (Non-Af Amer) Random Glucose Calcium Urine Color Urine Clarity Urine pH Ur Specific [place] Urine Protein Urine Glucose (UA) Urine Ketones Urine Blood Urine Nitrate Urine Bilirubin Urine Urobilinogen Ur Leukocyte Esterase Urine RBC (Auto) Urine Microscopic WBC Urine Bacteria Attending/Attestation - Attestation I have personally seen and examined this patient.: Yes I have fully participated in the care of the patient.: Yes I have reviewed all pertinent clinical information: Yes Notes (Text): 05/31/18 18:35 agree with findings and plan as above.
[2018-05-30] MEDS: Piperacillin/Tazobact 3.375 GM in Sodium Chloride 0.9% 100 ML IVPB SCH (18:32)
[2018-05-30] MEDS ORDERED: Piperacillin/Tazobact 3.375 GM in Sodium Chloride 0.9% 100 ML IVPB SCH (21:00)
[2018-05-31] MEDS: Piperacillin/Tazobact 3.375 GM in Sodium Chloride 0.9% 100 ML IVPB SCH ×3 (00:16→15:00)
[2018-05-31] MEDS: Lactated Ringer's 1,000 ML IV SCH ×2 (00:16→09:16)
[2018-05-31] MEDS ORDERED: Morphine 4 MG/ML VIAL IVP PRN (00:23)
[2018-05-31 01:13] LABS: URINE BACTERIA RARE (<OCC); URINE BILIRUBIN NEGATIVE (NEGATIVE); URINE BLOOD NEGATIVE (NEGATIVE); URINE CLARITY CLEAR (Clear); URINE COLOR STRAW (YELLOW); URINE GLUCOSE (UA) NEG (Normal); URINE LEUKOCYTE ESTERASE NEG Leu/uL (Negative); URINE PROTEIN NEGATIVE (NEGATIVE); URINE UROBILINOGEN 0.2-1.0 mg/dL (0.2-1.0)
[2018-05-31 06:22] LABS: BASO % 0.4 % (0.0-2.0); EOS # 0.4 K/uL (0.0-0.7); EOS % 3.9 % (0.0-4.0); HEMOGLOBIN 12.4 g/dL (12.0-18.0); LYMPH # 2.2 K/uL (1.0-4.3); LYMPH % 20.7 % (20.0-40.0); MEAN CELL VOLUME 85.9 fl (80.0-94.0); MEAN CORPUSCULAR HEMOGLOBIN 28.8 pg (27.0-31.0); MEAN CORPUSCULAR HGB CONC 33.5 g/dL (33.0-37.0); MONO # 0.8 K/uL (0.0-0.8); MONO % 7.1 % (0.0-10.0); NEUT # 7.2 K/uL (1.8-7.0); NEUT % 67.9 % (50.0-75.0); RBC 4.3 Mil/uL (4.40-5.90); RED CELL DISTRIBUTION WIDTH 15.2 % (11.5-14.5); WHITE BLOOD COUNT 10.6 K/uL (4.8-10.8)
[2018-05-31 06:29] LABS: INR 1.1; PROTHROMBIN TIME 12.2 Seconds (9.8-13.1)
[2018-05-31 06:32] LABS: PARTIAL THROMBOPLASTIN TIME 34.1 Seconds (25.6-37.1)
--- NOTE | 2018-05-31 06:40 | CP.PCM.PN ---
<Todd Farmer - Last Filed: 05/31/18 13:02> Subjective - Date & Time of Evaluation Date of Evaluation: 05/31/18 Time of Evaluation: 06:40 - Subjective Subjective: Pt seen and examined at bedside with surgical team. Pt reports nausea and increasing RLQ with L abdominal pain. Denies bleeding per rectum. Denies vomiting. Objective - Vital Signs/Intake and Output Vital Signs (last 24 hours): Temp Pulse Resp BP Pulse Ox 98 F 68 19 118/78 99 05/31/18 00:30 05/31/18 00:30 05/31/18 00:30 05/31/18 00:30 05/31/18 00:30 - Medications Medications: Current Medications Acetaminophen (Tylenol 325mg Tab) 650 mg PO Q4 PRN PRN Reason: Pain, severe (8-10) Piperacillin Sod/Tazobactam (Sod 3.375 gm/ Sodium Chloride) 100 mls @ 100 mls/hr IVPB Q8 HO; Protocol Last Admin: 05/31/18 00:16 Dose: 100 mls/hr Lactated Ringer's (Lactated Ringer's) 1,000 mls @ 125 mls/hr IV .Q8H HO Last Admin: 05/31/18 00:16 Dose: 125 mls/hr Morphine Sulfate (Morphine) 4 mg IVP Q6 PRN PRN Reason: Pain, moderate (4-7) Last Admin: 05/31/18 00:32 Dose: 4 mg Ondansetron HCl (Zofran Inj) 4 mg IVP Q6 PRN PRN Reason: Nausea/Vomiting Last Admin: 05/31/18 00:16 Dose: 4 mg - Labs Labs: 05/31/18 06:00 05/30/18 11:20 PT 12.2 Seconds (9.8-13.1) 05/31/18 06:00 INR 1.1 05/31/18 06:00 APTT 34.1 Seconds (25.6-37.1) 05/31/18 06:00 - Constitutional Appears: Well, Non-toxic - Eye Exam Eye Exam: EOMI - ENT Exam ENT Exam: Mucous Membranes Moist - Respiratory Exam Respiratory Exam: Clear to Ausculation Bilateral, NORMAL BREATHING PATTERN. absent: Wheezes - Cardiovascular Exam Cardiovascular Exam: REGULAR RHYTHM, +S1, +S2 - GI/Abdominal Exam GI & Abdominal Exam: Soft, Tenderness (L sided and RLQ), Normal Bowel Sounds - Extremities Exam Extremities Exam: absent: Calf Tenderness - Neurological Exam Neurological Exam: Alert, Awake, CN II-XII Intact, Oriented x3 - Psychiatric Exam Psychiatric exam: Normal Affect, Normal Mood Assessment and Plan - Assessment and Plan (Free Text) Assessment: 53 yo M with pmhx of gastroenteritis and osteomyelitis of L 1st MTP admitted for acute appendicitis. Plan: -Pt medically optimized for surgery Acute appendicitis -CT abdomen and pelvis with IV contrast: acute appendicitis -Surgery consulted: Plan for surgery today -Zosyn -1 mx: LR -monitor wbc, fever -f/u labs Diarrhea -Unclear of blood per rectum -hx of blood described as blue in color -No current bloody stools -History of enteritis -Consult GI: Dr. Pierre for possible colonoscopy Prophylaxis -SCDs PT -pt uses cane at home Case dw Dr. Luther Farmer MD PGY2 <Celeste Sloan - Last Filed: 05/31/18 18:32> Objective - Vital Signs/Intake and Output Vital Signs (last 24 hours): Temp Pulse Resp BP Pulse Ox 97.6 F 67 18 109/70 94 L 05/31/18 16:19 05/31/18 16:19 05/31/18 16:19 05/31/18 16:19 05/31/18 16:19 Intake and Output: 05/31/18 05/31/18 06:59 18:59 Intake Total 1300 Balance 1300 - Medications Medications: Current Medications Acetaminophen (Tylenol 325mg Tab) 650 mg PO Q4 PRN PRN Reason: Pain, severe (8-10) Lactated Ringer's (Lactated Ringer's) 1,000 mls @ 125 mls/hr IV .Q8H HO Last Admin: 05/31/18 09:16 Dose: Not Given Azithromycin 500 mg/ Sodium (Chloride) 250 mls @ 250 mls/hr IVPB DAILY HO; Protocol Last Admin: 05/31/18 09:28 Dose: 250 mls/hr Piperacillin Sod/Tazobactam (Sod 3.375 gm/ Sodium Chloride) 100 mls @ 100 mls/hr IVPB Q6H HO; Protocol Last Admin: 05/31/18 15:00 Dose: 100 mls/hr Lactated Ringer's (Lactated Ringer's) 1,000 mls @ 75 mls/hr IV .[id number] HO Last Admin: 05/31/18 14:30 Dose: 0 mls Morphine Sulfate (Morphine) 4 mg IVP Q6 PRN PRN Reason: Pain, moderate (4-7) Last Admin: 05/31/18 00:32 Dose: 4 mg Ondansetron HCl (Zofran Inj) 4 mg IVP Q6 PRN PRN Reason: Nausea/Vomiting Last Admin: 05/31/18 00:16 Dose: 4 mg - Labs Labs: 05/31/18 06:00 05/31/18 06:00 PT 12.2 Seconds (9.8-13.1) 05/31/18 06:00 INR 1.1 05/31/18 06:00 APTT 34.1 Seconds (25.6-37.1) 05/31/18 06:00 Attending/Attestation - Attestation I have personally seen and examined this patient.: Yes I have fully participated in the care of the patient.: Yes I have reviewed all pertinent clinical information, including history, physical exam and plan: Yes Notes (Text): 05/31/18 18:32 agree with findings and plan as above.
[2018-05-31 06:48] LABS: BLOOD UREA NITROGEN 12 mg/dl (9-20); GFR NON-AFRICAN AMERICAN > 60
[2018-05-31] MEDS ORDERED: Piperacillin/Tazobact 3.375 GM in Sodium Chloride 0.9% 100 ML IVPB SCH (07:45)
[2018-05-31] MEDS: Azithromycin 500 MG in Sodium Chloride 0.9% 250 ML IVPB SCH ×2 (09:14→09:28)
[2018-05-31] MEDS ORDERED: Lidocaine 1% Inj (20ml) ONE (10:47)
[2018-05-31] MEDS ORDERED: Bupivacaine HCl 0.5% PF (30 ml) Inj ONE (10:48)
--- NOTE | 2018-05-31 11:03 | CP.PCM.PN ---
<Milton Ragsdale - Last Filed: 05/31/18 11:01> Subjective - Date & Time of Evaluation Date of Evaluation: 05/31/18 Time of Evaluation: 11:01 - Subjective Subjective: SURGERY NOTE FOR DR. TIPTON 53M seen and examined at bedside. Patient states he continues to have left sided abdominal pain and now also developing right lower quadrant pain. He denies any nausea or vomiting, fevers or chills. States pain is not improving. He admits to having clots per rectum with the latest one being from 4 days ago. He has a history of clots. Objective - Vital Signs/Intake and Output Vital Signs (last 24 hours): Temp Pulse Resp BP Pulse Ox 97.9 F 71 19 142/95 H 96 05/31/18 08:12 05/31/18 08:12 05/31/18 08:12 05/31/18 08:12 05/31/18 08:12 - Medications Medications: Current Medications Acetaminophen (Tylenol 325mg Tab) 650 mg PO Q4 PRN PRN Reason: Pain, severe (8-10) Lactated Ringer's (Lactated Ringer's) 1,000 mls @ 125 mls/hr IV .Q8H HO Last Admin: 05/31/18 09:16 Dose: Not Given Azithromycin 500 mg/ Sodium (Chloride) 250 mls @ 250 mls/hr IVPB DAILY [facility]; Protocol Last Admin: 05/31/18 09:28 Dose: 250 mls/hr Piperacillin Sod/Tazobactam (Sod 3.375 gm/ Sodium Chloride) 100 mls @ 100 mls /hr IVPB Q6H HO; Protocol Last Admin: 05/31/18 09:28 Dose: 100 mls/hr Morphine Sulfate (Morphine) 4 mg IVP Q6 PRN PRN Reason: Pain, moderate (4-7) Last Admin: 05/31/18 00:32 Dose: 4 mg Ondansetron HCl (Zofran Inj) 4 mg IVP Q6 PRN PRN Reason: Nausea/Vomiting Last Admin: 05/31/18 00:16 Dose: 4 mg - Labs Labs: 05/31/18 06:00 05/31/18 06:00 PT 12.2 Seconds (9.8-13.1) 05/31/18 06:00 INR 1.1 05/31/18 06:00 APTT 34.1 Seconds (25.6-37.1) 05/31/18 06:00 - Constitutional Appears: Non-toxic, No Acute Distress - Cardiovascular Exam Cardiovascular Exam: REGULAR RHYTHM, +S1, +S2 - GI/Abdominal Exam GI & Abdominal Exam: Soft, Tenderness (left sided and right lower quadrant abdominal tenderness on palpation). 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 Risk and benefits explained to patient. Discussed with Dr Stuart Ragsdale, PGY3 <Evelyn Tipton - Last Filed: 05/31/18 13:09> Objective - Vital Signs/Intake and Output Vital Signs (last 24 hours): Temp Pulse Resp BP Pulse Ox 97.9 F 71 19 142/95 H 96 05/31/18 08:12 05/31/18 08:12 05/31/18 08:12 05/31/18 08:12 05/31/18 08:12 Intake and Output: 05/31/18 05/31/18 06:59 18:59 Intake Total 1100 Balance 1100 - Medications Medications: Current Medications Acetaminophen (Tylenol 325mg Tab) 650 mg PO Q4 PRN PRN Reason: Pain, severe (8-10) Lactated Ringer's (Lactated Ringer's) 1,000 mls @ 125 mls/hr IV .Q8H [facility] Last Admin: 05/31/18 09:16 Dose: Not Given Azithromycin 500 mg/ Sodium (Chloride) 250 mls @ 250 mls/hr IVPB DAILY [facility]; Protocol Last Admin: 05/31/18 09:28 Dose: 250 mls/hr Piperacillin Sod/Tazobactam (Sod 3.375 gm/ Sodium Chloride) 100 mls @ 100 mls/hr IVPB Q6H HO; Protocol Last Admin: 05/31/18 09:28 Dose: 100 mls/hr Morphine Sulfate (Morphine) 4 mg IVP Q6 PRN PRN Reason: Pain, moderate (4-7) Last Admin: 05/31/18 00:32 Dose: 4 mg Ondansetron HCl (Zofran Inj) 4 mg IVP Q6 PRN PRN Reason: Nausea/Vomiting Last Admin: 05/31/18 00:16 Dose: 4 mg - Labs Labs: 05/31/18 06:00 05/31/18 06:00 PT 12.2 Seconds (9.8-13.1) 05/31/18 06:00 INR 1.1 05/31/18 06:00 APTT 34.1 Seconds (25.6-37.1) 05/31/18 06:00 Assessment and Plan - Assessment and Plan (Free Text) Plan: Or for lap appendectomy. Risks and benefits of surgery discussed and informed consent signed. Patient also informed that appendectomy would relieve the right sided abdominal pain and possibly left sided but left sided pain made be to due diverticular disease or other process. Informed he will need colonoscopy as outpatient following discharge. He understands and wishes to proceed.
[2018-05-31] MEDS ORDERED: Lactated Ringer's 1,000 ML IV ONE ×2 (11:35→12:57)
[2018-05-31] MEDS ORDERED: Rocuronium 10 mg/ml (5 ml) ONE (11:43)
[2018-05-31] MEDS ORDERED: Propofol 10 mg/ml Inj (20 ML) ONE (11:43)
[2018-05-31] MEDS ORDERED: Succinylcholine 200 mg/10 ml Inj IV ONE (11:43)
[2018-05-31] MEDS ORDERED: Bupivacaine 0.25% Inj(30mL) IJ ONE ×2 (12:10)
[2018-05-31] MEDS ORDERED: Lidocaine/Epi 1% 1:100000 20 ML IJ ONE ×2 (12:10)
[2018-05-31] MEDS ORDERED: Neostigmine 1:1000 (1 mg/ml) Inj ONE (12:31)
[2018-05-31] MEDS ORDERED: Dexamethasone 4 mg/1 ml ONE (12:36)
--- NOTE | 2018-05-31 12:58 | RAD ---
Date of service: 05/31/2018 HISTORY: pre-op COMPARISON: No prior. FINDINGS: LUNGS: The lungs are well inflated and clear. PLEURA: No pleural effusions or pneumothorax. CARDIOVASCULAR: The heart is normal in size. No aortic atherosclerotic calcification present. OSSEOUS STRUCTURES: Within normal limits for the patient's age. VISUALIZED UPPER ABDOMEN: Normal. OTHER FINDINGS: None. IMPRESSION: No active pulmonary disease.
--- NOTE | 2018-05-31 13:13 | PCM.OP ---
Operative Report - Operative Report Date of Surgery/Procedure: 05/31/18 Time of Surgery/Procedure: 12:00 Surgeon: Evelyn Davidson MD Power Project Manager: Alexx Garcia DO (PGY3 resident) Anesthesia/Sedation: See main Pre-Operative Diagnosis: See main Post-Operative Diagnosis: See main Indication for Surgery: See main Operative Findings: See main Procedure/Operation Description: Anesthesia: General endotracheal; 1% lidocaine + 0.25% Marcaine mix local anesthesia Pre-operative Diagnosis: Acute appendicitis, Morbid Obesity, BMI 35, Diverticulosis Post-operative Diagnosis: Acute appendicitis, Morbid Obesity, BMI 35, Diverticulosis Operative Findings: Long, mildly inflamed, retrocecal appendix without evidence of perforation. Appendix removed intact; Mesoappendiceal and cecal staple lines in tact without leak or bleeding at end of case. Left abdominal wall omental adhesions. Left colon not visualized or explored. INDICATIONS FOR SURGERY: This is a 53 year old female who presented to the emergency department earlier with 24 hours of diffuse and vague abdominal pain, intially worse on left abdomen. Next am pain migrated to right lower quadrant and CT scan findings consistent with acute appendicitis of mid appendix. Risks and benefits of laparoscopic possible open, appendectomy discussed, including but not limited to, bleeding, infection, stump leak, abscess, wound infection, bowel obstruction as documented in clinical chart. All questions answered and informed consent signed prior to operation. PROCEDURE PERFORMED: Laparoscopic Appendectomy DETAILS OF PROCEDURE: The patient was given a preoperative dose of Ancef 2 g 20 minutes prior to incision. SCD boots were placed for DVT prophylaxis. Secure straps placed above the knees. Left arm tucked at patients side in neutral position. Right arm placed out on padded armboard. An orogastric tube placed in order to empty the stomach after the induction of general anesthesia. Upper body warmer placed. No collins catheter used as patient voided immediately prior to being brought back to OR. Hair removal performed with shaver. The abdomen was prepped and draped in sterile fashion. Timeout was performed prior to incison. A vertical incision directly over the umbilicus was made in the skin and taken down until we encountered the patient umbilical hernia containing fat, approximately 5-7mm in width. The fat was cleared from the fascial edges. A 5mm port was then placed under direct vision and the abdomen was insufflated to 15 mmHg pressure with CO2. A 5mm 30 degree laparoscope was then inserted and no signs of injury from abdominal entry. We then placed 2 additional working ports. All trocar sites were preanesthetized with local anesthesia and ports placed under direct vision without incident. One 12mm trocar in left lower quadrant, lateral to the rectus and inferior epigastric vessels; and another 5mm port in the suprapubic region. The abdomen was generally insepected and no other pathology found. We began by sweeping the small intestine out of the pelvis and easily visualized the cecum tracing the taenia down to the appendix and terminal ileum with identifcation of the fat/fold of treves. Long mildly inflamed appendix without perforation noted. Mild inflammatory adhesions from fold of treves to base of appendix, taken down sharply. A mesenteric window was created bluntly in between base of appendix at cecum and mesoappendix, and ligated and divided using bipolar energy device. It was inspected and noted to be intact without bleeding. Next a 45 mm blue load linear staple was used to divide the appendix at its base, being sure not to incorporate cecum. The specimen was placed in an Endocatch bag and removed from the 12mm trocar. The trocar reinserted and we next turned our attention to inspecting the staple line. There was a small amount of ozzing from the medial staple line. Two 5mm metallic clips were placed and hemostasis obtained. Omentum was then draped over the suture line and instruments and ports removed under direct vision. A transfascial suture device with 0-vicryl suture was used to close the left lateral port site fascia, placed in figure of 8 fashion under direct vision. The abdomen was then desufflated. The skin incisions were closed with 4-0 monocryl and dermabond. All sponge, needle and instrument counts were correct. The patient was extubated in the operating room, and taken to the recovery room in stable condition. Estimated Blood Loss: 5mL Complications: none Specimen: appendix Discharge & Condition: See main
[2018-05-31] MEDS ORDERED: HYDROmorphone 0.5 mg/0.5 ml ISec IVP PRN (13:19)
--- NOTE | 2018-05-31 13:19 | PCM.SURG1 ---
Surgeon's Initial Post Op Note - Surgeon's Notes Surgeon: Evelyn Davidson MD Privacy Analyst: Alexx Ragsdale, PGY3 Pre-Operative Diagnosis: Acute appendicitis Operative Findings: Inflammed appendix Post-Operative Diagnosis: Acute appendicitis Operation Performed: Laparoscopic Appendectomy Specimen/Specimens Removed: appendix Estimated Blood Loss: EBL {In ML}: 5 Date of Surgery/Procedure: 05/31/18 Time of Surgery/Procedure: 11:55
--- NOTE | 2018-05-31 13:26 | CP.PCM.PN ---
Subjective - Date & Time of Evaluation Date of Evaluation: 05/31/18 Time of Evaluation: 13:23 - Subjective Subjective: Surgery note for Dr. Davidson 53M s/p laparoscopic appendectomy. Patient cleared for regular diet. Continue IV Zosyn inpatient. May be discharged later today if tolerating diet. He will require PO antibiotics upon DC for further treatment of diverticulitis disease. He will require and outpatient colonoscopy. Scripts for antibiotics and pain medication will be in chart. Follow up in 2-4 weeks in clinic. Discharge instructions will be in chart also. Objective - Vital Signs/Intake and Output Vital Signs (last 24 hours): Temp Pulse Resp BP Pulse Ox 97.9 F 71 19 142/95 H 96 05/31/18 08:12 05/31/18 08:12 05/31/18 08:12 05/31/18 08:12 05/31/18 08:12 Intake and Output: 05/31/18 05/31/18 06:59 18:59 Intake Total 1100 Balance 1100 - Medications Medications: Current Medications Acetaminophen (Tylenol 325mg Tab) 650 mg PO Q4 PRN PRN Reason: Pain, severe (8-10) Hydromorphone HCl (Dilaudid) 0.5 mg IVP Q5M PRN PRN Reason: Pain, moderate (4-7) Stop: 05/31/18 15:20 Lactated Ringer's (Lactated Ringer's) 1,000 mls @ 125 mls/hr IV .Q8H [facility] Last Admin: 05/31/18 09:16 Dose: Not Given Azithromycin 500 mg/ Sodium (Chloride) 250 mls @ 250 mls/hr IVPB DAILY [facility]; Protocol Last Admin: 05/31/18 09:28 Dose: 250 mls/hr Piperacillin Sod/Tazobactam (Sod 3.375 gm/ Sodium Chloride) 100 mls @ 100 mls/hr IVPB Q6H [facility]; Protocol Last Admin: 05/31/18 09:28 Dose: 100 mls/hr Lactated Ringer's (Lactated Ringer's) 1,000 mls @ 75 mls/hr IV .[id number] HO Morphine Sulfate (Morphine) 4 mg IVP Q6 PRN PRN Reason: Pain, moderate (4-7) Last Admin: 05/31/18 00:32 Dose: 4 mg Ondansetron HCl (Zofran Inj) 4 mg IVP Q6 PRN PRN Reason: Nausea/Vomiting Last Admin: 05/31/18 00:16 Dose: 4 mg Ondansetron HCl (Zofran Inj) 4 mg IVP ONCE PRN PRN Reason: Nausea/Vomiting Stop: 05/31/18 15:20 - Labs Labs: 05/31/18 06:00 05/31/18 06:00 PT 12.2 Seconds (9.8-13.1) 05/31/18 06:00 INR 1.1 05/31/18 06:00 APTT 34.1 Seconds (25.6-37.1) 05/31/18 06:00
[2018-05-31] MEDS ORDERED: Lactated Ringer's 1,000 ML IV SCH (13:30)
[2018-05-31 18:38] VITALS: RESP 20
[2018-05-31 18:41] VITALS: BP 110/68; PULSE 79; TEMP 98.1; O2SAT 97
--- NOTE | 2018-05-31 20:03 | CARD ---
APPROVED REPORT Date of service: 05/31/2018 EKG Measurement Heart [id number] CT [id number] [id number] <Conclusion> Normal sinus rhythm Normal ECG
--- NOTE | 2018-06-01 17:17 | CP.PCM.DIS ---
Provider - Provider Date of Admission: 05/30/18 13:43 Attending physician: Celeste Sloan DO Consults: 05/30/18 13:42 General Surgery Consult Stat Comment: Consulting Provider: Evelyn Davidson Consulting Physician: Evelyn Davidson Reason for Consult: Abd CT positive for acute appendicitis 05/30/18 15:44 Gastroenterology Consult Stat Comment: Consulting Provider: Oleksandr Pierre Consulting Physician: Oleksandr Pierre Reason for Consult: Abdominal pain Time Spent in preparation of Discharge (in minutes): 30 Hospital Course - Lab Results Lab Results: Most Recent Lab Values WBC 10.6 K/uL (4.8-10.8) 05/31/18 06:00 RBC 4.30 Mil/uL (4.40-5.90) L 05/31/18 06:00 Hgb 12.4 g/dL (12.0-18.0) 05/31/18 06:00 Hct 36.9 % (35.0-51.0) 05/31/18 06:00 MCV 85.9 fl (80.0-94.0) D 05/31/18 06:00 MCH 28.8 pg (27.0-31.0) 05/31/18 06:00 MCHC 33.5 g/dL (33.0-37.0) 05/31/18 06:00 RDW 15.2 % (11.5-14.5) H 05/31/18 06:00 Plt Count 254 K/uL (130-400) 05/31/18 06:00 MPV 8.0 fl (7.2-11.7) 05/31/18 06:00 Neut % (Auto) 67.9 % (50.0-75.0) 05/31/18 06:00 Lymph % (Auto) 20.7 % (20.0-40.0) 05/31/18 06:00 [place] % (Auto) 7.1 % (0.0-10.0) 05/31/18 06:00 Eos % (Auto) 3.9 % (0.0-4.0) 05/31/18 06:00 Baso % (Auto) 0.4 % (0.0-2.0) 05/31/18 06:00 Neut # (Auto) 7.2 K/uL (1.8-7.0) H 05/31/18 06:00 Lymph # (Auto) 2.2 K/uL (1.0-4.3) 05/31/18 06:00 [place] # (Auto) 0.8 K/uL (0.0-0.8) 05/31/18 06:00 Eos # (Auto) 0.4 K/uL (0.0-0.7) 05/31/18 06:00 Baso # (Auto) 0.0 K/uL (0.0-0.2) 05/31/18 06:00 PT 12.2 Seconds (9.8-13.1) 05/31/18 06:00 INR 1.1 05/31/18 06:00 APTT 34.1 Seconds (25.6-37.1) 05/31/18 06:00 Sodium 141 mmol/l (132-148) 05/31/18 06:00 Potassium 4.1 MMOL/L (3.6-5.0) 05/31/18 06:00 Chloride 108 mmol/L (98-107) H 05/31/18 06:00 Carbon Dioxide 27 mmol/L (22-30) 05/31/18 06:00 Anion Gap 10 (10-20) 05/31/18 06:00 BUN 12 mg/dl (9-20) 05/31/18 06:00 Creatinine 0.9 mg/dl (0.8-1.5) 05/31/18 06:00 Est GFR ( Amer) > 60 05/31/18 06:00 Est GFR (Non-Af Amer) > 60 05/31/18 06:00 Random Glucose 91 mg/dL (75-110) 05/31/18 06:00 Calcium 9.0 mg/dL (8.4-10.2) 05/31/18 06:00 Total Bilirubin 0.4 mg/dl (0.2-1.3) 05/30/18 11:20 AST 39 U/L (17-59) 05/30/18 11:20 ALT 56 U/L (21-72) 05/30/18 11:20 Alkaline Phosphatase 101 U/L (38-126) 05/30/18 11:20 Total Protein 7.6 G/DL (6.3-8.2) 05/30/18 11:20 Albumin 4.5 g/dL (3.5-5.0) 05/30/18 11:20 Globulin 3.1 gm/dL (2.2-3.9) 05/30/18 11:20 Albumin/Globulin Ratio 1.5 (1.0-2.1) 05/30/18 11:20 Lipase 51 U/L (23-300) 05/30/18 11:20 Urine Color Straw (YELLOW) 05/31/18 01:00 Urine Clarity Clear (Clear) 05/31/18 01:00 Urine pH 6.0 (5.0-8.0) 05/31/18 01:00 Ur Specific [place] 1.017 (1.003-1.030) 05/31/18 01:00 Urine Protein Negative mg/dL (NEGATIVE) 05/31/18 01:00 Urine Glucose (UA) Neg mg/dL (Normal) 05/31/18 01:00 Urine Ketones Negative mg/dL (NEGATIVE) 05/31/18 01:00 Urine Blood Negative (NEGATIVE) 05/31/18 01:00 Urine Nitrate Negative (NEGATIVE) 05/31/18 01:00 Urine Bilirubin Negative (NEGATIVE) 05/31/18 01:00 Urine Urobilinogen 0.2-1.0 mg/dL (0.2-1.0) 05/31/18 01:00 Ur Leukocyte Esterase Neg Lali/uL (Negative) 05/31/18 01:00 Urine RBC (Auto) 1 /hpf (0-3) 05/31/18 01:00 Urine Microscopic WBC < 1 /hpf (0-5) 05/31/18 01:00 Urine Bacteria Rare (<OCC) 05/31/18 01:00 - Hospital Course Hospital Course: 53 yo M with pmhx of gastroenteritis and osteomyelitis of L 1st MTP admitted for acute appendicitis. -CT abdomen and pelvis with IV contrast: acute appendicitis -Abx: Zosyn -IVF: LR -Surgery: Laparoscopic appendectomy on 05/31/2018 -Pt discharged with abx per surgery for diverticulitis: Cipro and Flagyl x 5 days Pt will need colonoscopy in outpatient with pmd ER precautions reviewed with patient Case dw Dr. Luther Farmer MD PGY2 Discharge Exam - Head Exam Head Exam: ATRAUMATIC Discharge Plan - Follow Up Plan Condition: STABLE Disposition: HOME/ ROUTINE Instructions: Appendicitis, Adult (DC), Appendectomy, Laparoscopic Surgery
== END 2018-05-31 21:00 | disposition home or self-care (01) ==
LOC: H.ER 10:06 → H.ERHOLD 13:43 → H.MEDSURG1 15:55
PROVIDERS: ADMIT Student in an Organized Health Care Education/Training Program; ATTEND Student in an Organized Health Care Education/Training Program
DX: K35.80 Unspecified acute appendicitis (principal); K66.0 Peritoneal adhesions (postprocedural) (postinfection); K57.90 Diverticulosis of intestine, part unspecified, without perforation or abscess without bleeding; E66.01 Morbid (severe) obesity due to excess calories; Z68.35 Body mass index [BMI] 35.0-35.9, adult; Z87.891 Personal history of nicotine dependence
CPT/HCPCS: 36415; 44970; 71045; 74177; 80048; 80053; 81003; 83690; 85025; 85610; 85730; 88304; 93005; 96374; 99284; G0378; J0330; J0456; J0690; J1100; J1170; J1885; J2001; J2270; J2405; J2543; J2704; J2710; J2765; J3010; J7030; J7050; J7120; Q9967